=== PATIENT | female | born 1960 | race Caucasian/White ===

== ENCOUNTER → 2017-01-20 | Outpatient (CLI) | payer BC ==
--- NOTE | ~2017-01-20 | CT138 ---
[facility] A Service of [facility] & [facility] RADIOLOGY TEXT RESULTS PATIENT: JESIKA HERNANDEZ LOCATION: CNIV : 60 UNIT #: [id number] AGE: [address]: Millie Morales SEX: F ORDER DR: [id number] [place], [place] [address] [id number] O MR#: [id number] Acc #: [id number] NAME: JESIKA HERNANDEZ : 1960 SEX: F STUDY DATE/TIME: 01/20/2017 11:13 UNIT: CNIV ROOM: STUDY DESCRIPTION: CT Lung screening initial Attending Physician: Lucina Light Referring Physician: Lucina Light Ordering Physician: Lucina Light Primary Care Physician: Lucina Light MEDICAL IMAGING REPORT This report is preliminary unless electronic signature is present EXAM CT chest without contrast, low-dose lung cancer screening protocol DATE 01/20/2017 HISTORY 56-year-old female with 30 pack-year smoking history. Lung cancer screening. No current complaints. COMPARISON None. PROCEDURE 2 mm noncontrast axial images through the chest. Sagittal and coronal reformatted images were obtained. This CT exam was performed with one or more of the following radiation dose reduction techniques: Automatic exposure control, adjustment of mA and/or kV according to patient size, and iterative reconstruction. CTDI volume in mGy: topogram 0.15, lung cancer screen 2.6. Dose length product in mGy/centimeter: topogram 7.47, lung cancer screen 80.52. FINDINGS The study is significantly attenuated secondary to the patient's body habitus. No suspicious pulmonary nodules are identified. The lungs appear free of airspace disease. No pleural effusion or pericardial effusion or pneumothorax. No abnormal bronchial wall thickening or bronchiectasis is evident. No pathologically enlarged lymph nodes are seen. Thoracic aortic caliber is normal. There is mild calcification within the left anterior descending coronary artery. Benign calcified granulomas seen in the left infrahilar region. The included portions of the upper abdominal organs are within normal limits. Degenerative disc STS. [facility] A Service of [facility] & [facility] RADIOLOGY TEXT RESULTS PATIENT: JESIKA HERNANDEZ LOCATION: CNIV : 60 UNIT #: [id number] AGE: [address]: Millie Morales SEX: F ORDER DR: and endplate changes are present within the mkp-op-bjacu thoracic spine. No acute or suspicious osseous abnormalities are identified. IMPRESSION 1. Lung-RADS category 1. Negative exam. There are no suspicious pulmonary nodules or adenopathy. Low-dose lung cancer screening protocol CT chest recommended in 1 year per Lung-RADS protocol. 2. Mild left anterior descending coronary artery calcification. 3. Thoracic spondylosis. 4. Size limited examination. Dictated by... Nayely Mcgowan M.D. THIS IS AN ELECTRONICALLY VERIFIED REPORT Nayely Mcgowan M.D. at 01/21/2017 3:53 PM Vonda/svitlana TD: 01/21/2017 00:19 JOB #: [id number] MEDICAL IMAGING REPORT Page 1 of 1 COPY
--- NOTE | ~2017-01-20 | US135 ---
[facility] A Service of [facility] & [facility] RADIOLOGY TEXT RESULTS PATIENT: JESIKA HERNANDEZ LOCATION: CNIV : 60 UNIT #: [id number] AGE: [address]: Millie Morales SEX: F ORDER DR: [id number] [facility] [address] [place], [place] [address] [id number] O MR#: [id number] Acc #: [id number] NAME: JESIKA HERNANDEZ. : 1960 SEX: F STUDY DATE/TIME: 01/20/2017 10:35 UNIT: CNIV ROOM: STUDY DESCRIPTION: US U/L Ext Art Study Comp Damien Attending Physician: Lucina Light Referring Physician: Lucina Light Ordering Physician: Lucina Light Primary Care Physician: Lucina Light MEDICAL IMAGING REPORT This report is preliminary unless electronic signature is present EXAM Bilateral lower extremity noninvasive arteriovascular testing, 01/20/2017 HISTORY 56-year-old female referred for a 1-year history of bilateral lower extremity pain, numbness, tingling and edema. One year history of Raynaud's disease. History of diabetes and hyperlipidemia. TECHNIQUE Segmental cuff pressure measurements and pulse volume recordings were obtained at brachial, thigh, upper calf, ankle and great toe levels with separate dorsalis pedis and posterior tibial measurements at each ankle. Doppler waveforms were also obtained at the ankles. FINDINGS The examination is normal. Leg-brachial indices measure at or greater than 1.0 at all levels, and pulse volume recordings are within normal limits at each segment. Ankle-brachial indices measure up to 0.98 on the right and 1.04 on the left. Great toe pressures are within normal limits. No evidence of significant lower extremity arterial occlusive disease. IMPRESSION 1. Normal examination. No evidence of significant lower extremity arterial occlusive disease. 2. Ankle-brachial indices measure up to 0.98 on the right and 1.04 on the left. Dictated by... Guzman Mccoy M.D. THIS IS AN ELECTRONICALLY VERIFIED REPORT Guzman Mccoy M.D. at 01/21/2017 4:35 PM ARELYW/marvin [facility]. [facility] A Service of [facility] RADIOLOGY TEXT RESULTS PATIENT: JESIKA HERNANDEZ LOCATION: CNIV : 60 UNIT #: [id number] AGE: [address]: Millie Morales SEX: F ORDER DR: TD: 01/20/2017 16:09 JOB #: [id number] MEDICAL IMAGING REPORT Page 1 of 1 COPY
== END | disposition home or self-care (01) ==
LOC: CNIV 01-14 13:00
DX: F17.210 Nicotine dependence, cigarettes, uncomplicated (principal); E11.9 Type 2 diabetes mellitus without complications; M25.571 Pain in right ankle and joints of right foot; M25.572 Pain in left ankle and joints of left foot; I25.10 Atherosclerotic heart disease of native coronary artery without angina pectoris; M47.894 Other spondylosis, thoracic region; Z72.0 Tobacco use
CPT/HCPCS: 93923; G0297